=== PATIENT | male | born 1975 | race Caucasian/White ===

== ENCOUNTER 2019-06-22 17:38 | Inpatient (IN) | payer OTHER, SELFPAY ==
[2019-06-22 17:41] VITALS: BP 129/73; PULSE 55; RESP 17; TEMP 36.8; O2SAT 96
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
[2019-06-22] MEDS: Acetaminophen 325 MG TAB 650 MG PO (18:09)
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
--- NOTE | 2019-06-22 18:50 | DI.VRAD_ITS ---
PROCEDURE INFORMATION: Exam: XR Chest, 1 View Exam date and time: 06/22/2019 6:35 PM Clinical history: 44 years old, male; Other: R/O tension pneumothorax TECHNIQUE: Imaging protocol: XR of the chest Views: 1 view. COMPARISON: CR XR CLAVICLE RT 22/06/2019 18:10 FINDINGS: Lungs: No focal consolidation. Pleural space: Small right apical pneumothorax. Heart/Mediastinum: Heart and mediastinum are normal. Bones/joints: Comminuted fracture dislocation right mid clavicle. IMPRESSION: 1. Right apical pneumothorax. This finding has been communicated to Dr. Mansfield on the clavicle x-rays. 2. Comminuted fracture dislocation right mid clavicle. Dictated and Authenticated by: Kavitha Matthews MD. Ordering:BINH Santo MD
--- NOTE | 2019-06-22 19:06 | W.PM.HP.N ---
Date of service: 06/22/19 Time of Service: 19:06 Assessment and Plan Assessment and plan (1) Traumatic pneumohemothorax: Status: Acute Assessment and plan: 5% PTX. pt is asymp. will admit for O2/obs/pulm toilet and repeat CXR in am if its improving/resolved- than he can return to [place] and seek Ortho care for clavicle supoortive care if PTX is worse, than will place PTX catheter. (2) Clavicle fracture: Status: Acute Assessment and plan: ice/sling/pain control ortho F/u in [place] (3) Depression: Status: Chronic (4) Seasonal allergies: Status: Acute Review of Systems Review of Systems ROS Unobtainable: All systems reviewed & are unremarkable except as noted in HPI and below Constitutional Constitutional: Reports as per HPI, Reports system reviewed and no additional complaints, except as docu, Denies anorexia, Denies chills, Denies difficulty sleeping, Denies fatigue, Denies headache(s), Denies lethargy, Denies malaise, Denies poor appetite, Denies weakness, Denies weight gain and Denies weight loss Eyes Eyes: Reports as per HPI, Reports system reviewed and no additional complaints, except as docu and Denies change in vision ENT Ears, Nose, Mouth, and Throat: Reports system reviewed and no additional complaints, except as docu, Reports as per HPI, Denies change in voice, Denies dental pain, Denies dysphagia, Denies dizziness, Denies facial pain, Denies headache(s) and Denies odynophagia Cardiovascular Cardiovascular: Reports as per HPI, Reports system reviewed and no additional complaints, except as docu, Denies chest pain, Denies chest pain with activity, Denies syncope, Denies leg edema and Denies dyspnea Respiratory Respiratory: Reports as per HPI, Reports system reviewed and no additional complaints, except as docu, Denies chest congestion, Denies cough, Denies pain with cough and Denies dyspnea Gastrointestinal Gastrointestinal: Reports as per HPI, Reports system reviewed and no additional complaints, except as docu, Denies abdominal pain, Denies bloating, Denies change in bowel habits, Denies change in stool character, Denies constipation, Denies cramping, Denies dysphagia, Denies early satiety, Denies heartburn, Denies diarrhea, Denies nausea, Denies odynophagia and Denies vomiting Genitourinary Genitourinary: Reports system reviewed and no additional complaints, except as docu Musculoskeletal Musculoskeletal: Reports system reviewed and no additional complaints, except as docu, Reports as per HPI, Denies abnormal gait, Denies arthralgias and Denies muscle weakness Comments: echymosis/swelling over right clavicle Integumentary/Breasts Skin/Breast: Reports system reviewed and no additional complaints, except as docu, Reports as per HPI, Denies changing lesions, Denies new lesions and Denies jaundice Comments: abrasions adn echymosis on LE. L>R. motor/sensory 5/5 on LE and SHIVANI ext 4/5 on RUE Neurologic Neurologic: Reports system reviewed and no additional complaints, except as docu, Reports as per HPI, Denies abnormal speech, Denies abnormal gait, Denies dizziness, Denies syncope, Denies headache(s), Denies memory loss and Denies weakness Psychiatric Psychiatric: Reports system reviewed and no additional complaints, except as docu, Reports as per HPI, Denies change in appetite and Denies memory loss Endocrine Endocrine: Denies fatigue, Denies polydipsia and Denies polyuria Hematologic/Lymphatic Hematologic/Lymphatic: Reports system reviewed and no additional complaints, except as docu, Denies easy bleeding and Denies easy bruising Allergic/Immunologic Allergic/Immunologic: Denies system reviewed and no additional complaints, except as docu, Reports as per HPI and Denies urticaria PFSH Medical History (Updated 06/23/19 @ 21:33 by Isabel Dominique DO) Clavicle fracture (Acute) Depression (Chronic) Seasonal allergies (Acute) Traumatic pneumohemothorax (Acute) Surgical History No significant past surgical history (Acute) Social History Smoking/Tobacco Use Status: Never Alcohol Intake: current Alcohol Intake frequency: a few times a week Drug use: Never Substance use type: does not use Do you feel safe at home: Yes Do you feel safe in your relationship?: Yes Meds Home Medications and Allergies Home Medications Medication Instructions Recorded Confirmed Type citalopram 20 mg PO DAILY 06/22/19 06/22/19 History Allergies Allergy/AdvReac Type Severity Reaction Status Date / Time ibuprofen Allergy Intermediate Wheezing Unverified 06/22/19 17:40 Exam Const General: cooperative, healthy appearing, comfortable, no acute distress, well developed and well groomed Nutritional Appearance: average body habitus and well nourished Orientation: alert, awake and oriented x3 [facility] Head: normal to inspection, normocephalic and atraumatic Ears: hearing grossly normal bilaterally and external ears normal General nose exam: external nose normal Face and sinus: normal facial exam and sinuses nontender Mouth: oral mucosae normal, lip normal, tongue normal and moist mucous membranes Teeth and gingiva: dentition normal Eyes General: appearance normal, both eyes and all related structures Conjunctivae: conjunctivae normal Sclera: sclerae normal Pupils: PERRL Neck Neck: normal visual inspection and full ROM Chest Chest: normal inspection of the chest Resp Effort & Inspection: normal respiratory effort, able to speak in complete sentences, no cough, no nasal flaring, not tachypneic and no use of accessory muscles Auscultation: clear to auscultation bilaterally, no rales, no rhonchi and no wheezes Cardio Jugular venous pressure: no JVD Rate: regular rate Rhythm: regular rhythm GI Inspection: normal to inspection, no edema and non-distended Palpation: soft, no masses, nontender and No ascites Auscultation: normal bowel sounds Skin General skin exam: no rashes or lesions noted Trauma: no lacerations or abrasions Neuro General: alert, oriented x3, oriented, gait normal, moves all extremities, no focal motor deficits and CN's II-XI intact bilaterally Cognition: normal cognition Speech: speech normal Gait: normal gait Motor: muscle tone normal throughout Extrem General: normal to inspection, full ROM and no clubbing, cyanosis or edema Right upper extremity: normal capillary refill and shoulder/upper arm (echymosis and obvious deformity R clavicle ); no edema Left upper extremity: normal to inspection, full ROM, normal capillary refill and edema Right lower extremity: normal to inspection, full ROM and normal capillary refill; no cyanosis and no edema Left lower extremity: normal to inspection, full ROM and normal capillary refill; no cyanosis and no edema Psych Appearance: grossly normal and well kempt Mental Status: mental status grossly normal Speech and Movement: speech and movement normal Affect: normal affect Results Labs Result diagrams: 06/23/19 06:42 06/22/19 18:50 Last Vital Signs Temp 36.8 C 06/22/19 17:41 Pulse 55 L 06/22/19 17:41 Resp 17 06/22/19 17:41 BP 129/73 06/22/19 17:41 Pulse Ox 96 06/22/19 17:41
[2019-06-22 19:07] LABS: HCT 38.1 % (40.0-50.0); HGB 12.6 g/dL (13.5-17.5); Mean Corp. HGB Concentration 33.1 g/dL (32.0-36.0); Mean Corpuscular Hemoglobin 27.5 pg (27.0-33.0); Mean Corpuscular Volume 83.2 fL (80-95); Mean Platelet Volume 10.4 fL (8.0-11.0); Platelet Count 236 x1000/uL (130-400); RBC 4.58 m/cumm (4.50-6.00); RBC Distribution Width 12.7 % (11.8-14.1); White Blood Cell Count 13.63 k/cumm (4.4-10.8)
[2019-06-22 19:25] LABS: Anion Gap 6.7 mmol/L (3-11); BUN 20 mg/dL (7-18); CO2 26.3 mmol/L (21.0-32.0); CREATININE 0.79 mg/dL (0.70-1.30); Calcium 8.5 mg/dL (8.5-10.1); Chloride 107 mmol/L (98-107); Glucose 104 mg/dL (70-100); Sodium 140 mmol/L (136-145)
[2019-06-22 19:27] LABS: Troponin I < 0.05 ng/mL (0.00-0.06)
[2019-06-22 20:42] VITALS: BP 129/73; PULSE 55; RESP 17; TEMP 36.8; O2SAT 96
[2019-06-22 20:47] VITALS: BP 138/68; PULSE 55; RESP 14; TEMP 36.8; O2SAT 98
[2019-06-22 21:30] VITALS: PULSE 48
[2019-06-22] MEDS: Lactated Ringers 1,000 ML 75 ML IV (21:37)
[2019-06-22] MEDS: Normal Saline Flush 10 ML SYR IVP (21:39)
[2019-06-22 23:00] VITALS: PULSE 53
[2019-06-22] MEDS: Acetaminophen 500 MG TAB 1000 MG PO (23:05)
[2019-06-22 23:07] VITALS: BP 125/69; PULSE 53; RESP 16; TEMP 36.3; O2SAT 98
[2019-06-23] VITALS (13 sets, daily range): BP systolic 125–134; BP diastolic 65–76; PULSE 47–54; RESP 12–18; TEMP 36.2–37.2; O2SAT 96–99
[2019-06-23] MEDS: Acetaminophen 500 MG TAB 1000 MG PO ×4 (06:02→23:39)
[2019-06-23 07:22] LABS: Abs Immature Grans 0.02 k/cumm (0.0-0.09); Absolute Basophil Count 0.01 k/cumm (0.0-0.2); Absolute Eosinophil Count 0.44 k/cumm (0.0-0.7); Absolute Lymphocyte Count 1.33 k/cumm (1.2-3.4); Absolute Monocyte Count 0.78 k/cumm (0.11-0.7); Absolute Neutrophil Count 5.06 k/cumm (1.2-6.7); Basophils % 0.1; Eosinophils % 5.8; HCT 36.5 % (40.0-50.0); HGB 11.9 g/dL (13.5-17.5); Immature Grans % 0.3; Lymphocytes % 17.4; Mean Corp. HGB Concentration 32.6 g/dL (32.0-36.0); Mean Corpuscular Hemoglobin 27.4 pg (27.0-33.0); Mean Corpuscular Volume 84.1 fL (80-95); Mean Platelet Volume 10.4 fL (8.0-11.0); Monocytes % 10.2; Neutrophils % 66.2; Platelet Count 193 x1000/uL (130-400); RBC 4.34 m/cumm (4.50-6.00); RBC Distribution Width 12.8 % (11.8-14.1); White Blood Cell Count 7.64 k/cumm (4.4-10.8)
[2019-06-23] MEDS: Normal Saline Flush 10 ML SYR IVP (07:51)
[2019-06-23] MEDS: Sennosides/Docusate Sodium TAB 1 TAB PO (07:52)
[2019-06-23] MEDS: Citalopram 20 MG TAB PO (07:52)
--- NOTE | 2019-06-23 08:15 | DI.RAD_ITS ---
EXAM: XR CHEST 2V PA LATERAL INDICATION: right PTX. COMPARISON: XR PORTABLE CHEST AP from 06/22/2019 FINDINGS: When compared with the previous examination, again noted is a small right apical pneumothorax and a r ight clavicular fracture with no significant interval change when compared with the previous examinat ion.
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
--- NOTE | 2019-06-23 08:29 | DI.VRAD_ITS ---
PROCEDURE INFORMATION: Exam: XR Chest, 2 Views Exam date and time: 06/23/2019 12:01 AM Clinical history: 44 years old, male; Other: Right ptx TECHNIQUE: Imaging protocol: XR of the chest Views: 2 views. COMPARISON: XR PORTABLE CHEST AP 06/22/2019 6:25 PM FINDINGS: Lungs: Equivocal developing right midlung pneumonia. Pleural space: Stable right-sided apical pneumothorax. Heart/Mediastinum: Unremarkable. No cardiomegaly. Bones/joints: Right-sided clavicle fracture. IMPRESSION: 1. Stable right-sided apical pneumothorax. 2. Equivocal developing right midlung pneumonia. 3. Right-sided clavicle fracture. Dictated and Authenticated by: Pranay George MD. Ordering:STEVE Hall MD
[2019-06-23] MEDS: LORazepam 2 MG/ML VIAL 1 MG IVP (13:26)
[2019-06-23] MEDS: Lactated Ringers 1,000 ML 75 ML IV (14:11)
--- NOTE | 2019-06-23 14:29 | PGE_ITS ---
Date of Service Date of service: 06/23/19 Time of Service: 14:29 Assessment and Plan Assessment and plan (1) Clavicle fracture: Status: Acute Assessment and plan: supportive care pt will f/u w/ personal PCP in [place] adn get referral to ortho once he gets home (2) Traumatic pneumohemothorax: Status: Acute Assessment and plan: will place PTX catheter today to re-inflate lung pulm toilet pain control hopefully be able to d/c monday Subjective Subjective Interval history since last seen: Pt is doing well. no headaches. No CP or SOB. no productive cough. no dysuria. no leg pain or swelling. pt ptx did not resolve over the night and he is developing atelectaisis/pneumonia in the collapsed segments. So we do need to get his lung re-expanded. Psc: A & O x3. In NAD Cardiac: No Chest pain, SOB. BP is stable. no SOB. no murmurs. no JVD. extremities are pink and warm with good cap refill. No open sores or breakdown. NSR . No Lower ext. Edema or lymphedema., Pulmonary: No SOB. Oxygen saturation is normal. No rales/rhonchi/wheeze. no productive cough. no hemoptysis. GI: no heartburn/indigestion/nausea/vomiting. no rectal pain or discharge. no abdominal pain/burning. no hernias. no jaundice. no pain or difficulty swallowing. no thrush. : pt has been able to void spontaneously. no dysuria. no hematuria skin: no pressure sores or breakdown LE: no cyanosis or edema no clubbing. No signs of venous insufficiency, no stasis dermatitis, or lymphedema. No signs of arterial dx. No punched out ulcers, loss of normal hair pattern. Neuro: The pt is moving all four extremities independently. few minor abrasions and areas of echymosis on his LE CN 2-12 are grossly intact. As are all DTR?s no numbness or tingling in ext. no neck pain w/ active or passive ROM. pulses equal b/l upper & lower. 2/2 motor 5/5 except in R arm which is 4/5- secondary to pain from clavicle. Exam Const General: cooperative, healthy appearing, comfortable, no acute distress, well developed and well groomed Nutritional Appearance: average body habitus and well nourished Orientation: alert, awake and oriented x3 [facility] Head: normal to inspection, normocephalic and atraumatic Ears: hearing grossly normal bilaterally and external ears normal General nose exam: external nose normal Face and sinus: normal facial exam and sinuses nontender Mouth: oral mucosae normal, lip normal, tongue normal and moist mucous membranes Teeth and gingiva: dentition normal Eyes General: appearance normal, both eyes and all related structures Conjunctivae: conjunctivae normal Sclera: sclerae normal Pupils: PERRL Neck Neck: normal visual inspection and full ROM Chest Chest: normal inspection of the chest Resp Effort & Inspection: normal respiratory effort, able to speak in complete sentences, no cough, no nasal flaring, not tachypneic and no use of accessory muscles Auscultation: clear to auscultation bilaterally, no rales, no rhonchi and no wheezes Cardio Jugular venous pressure: no JVD Rate: regular rate Rhythm: regular rhythm GI Inspection: normal to inspection, no edema and non-distended Palpation: soft, no masses, nontender and No ascites Auscultation: normal bowel sounds Skin General skin exam: no rashes or lesions noted Trauma: no lacerations or abrasions Neuro General: alert, oriented x3, oriented, gait normal, moves all extremities, no focal motor deficits and CN's II-XI intact bilaterally Cognition: normal cognition Speech: speech normal Gait: normal gait Motor: muscle tone normal throughout Extrem General: normal to inspection, full ROM and no clubbing, cyanosis or edema Psych Appearance: grossly normal and well kempt Mental Status: mental status grossly normal Speech and Movement: speech and movement normal Affect: normal affect Objective Objective Clinical Data: Abnormal lab results 06/22/19 06/22/19 06/23/19 Range/Units 18:50 18:50 06:42 WBC 13.63 H (4.4-10.8) k/cumm RBC 4.34 L (4.50-6.00) m/cumm Hgb 12.6 L 11.9 L (13.5-17.5) g/dL Hct 38.1 L 36.5 L (40.0-50.0) % Absolute Monocytes 0.78 H (0.11-0.7) k/cumm BUN 20 H (7-18) mg/dL Glucose 104 H (70-100) mg/dL Vital Signs Temperature 36.2 C L 06/23/19 07:26 Temperature Source Tympanic 06/23/19 07:26 Pulse 48 L 06/23/19 07:58 Pulse Rhythm Regular 06/23/19 00:00 Respiratory Rate 18 06/23/19 07:26 Respiratory Effort Non-Labored 06/23/19 00:00 Respiratory Depth Normal 06/23/19 00:00 Respiratory Pattern Normal 06/23/19 00:00 Blood Pressure 132/75 06/23/19 07:26 Blood Pressure Position Supine 06/22/19 17:41 Pulse Oximetry 99 06/23/19 07:26 Oxygen Delivery Method Nasal Cannula 06/23/19 07:26 Oxygen Flow Rate 3 06/23/19 07:26 Pain Level 4 06/23/19 14:11 Comment 06/23/19 03:00 Intake & Output 06/22/19 06/23/19 06/23/19 23:59 11:59 23:59 Intake Total 2069 Balance 2069 Weight 78.9 kg Intake: IV 1000 / 1000 Oral 1070 / 1070 Other: Urine Color Yellow Urine Appearance Clear Urine Odor Normal Voiding Methods Toilet Laboratory Results WBC 7.64 k/cumm (4.4-10.8) D 06/23/19 06:42 RBC 4.34 m/cumm (4.50-6.00) L 06/23/19 06:42 Hgb 11.9 g/dL (13.5-17.5) L 06/23/19 06:42 Hct 36.5 % (40.0-50.0) L 06/23/19 06:42 MCV 84.1 fL (80-95) 06/23/19 06:42 MCH 27.4 pg (27.0-33.0) 06/23/19 06:42 MCHC 32.6 g/dL (32.0-36.0) 06/23/19 06:42 RDW 12.8 % (11.8-14.1) 06/23/19 06:42 Plt Count 193 x1000/uL (130-400) 06/23/19 06:42 MPV 10.4 fL (8.0-11.0) 06/23/19 06:42 Immature Gran % 0.3 06/23/19 06:42 Neutrophils % 66.2 06/23/19 06:42 Lymphocytes % 17.4 06/23/19 06:42 Monocytes % 10.2 06/23/19 06:42 Eosinophils % 5.8 06/23/19 06:42 Basophils % 0.1 06/23/19 06:42 Absolute Neutrophils 5.06 k/cumm (1.2-6.7) 06/23/19 06:42 Absolute Lymphocytes 1.33 k/cumm (1.2-3.4) 06/23/19 06:42 Absolute Monocytes 0.78 k/cumm (0.11-0.7) H 06/23/19 06:42 Absolute Eosinophils 0.44 k/cumm (0.0-0.7) 06/23/19 06:42 Absolute Basophils 0.01 k/cumm (0.0-0.2) 06/23/19 06:42 Sodium 140 mmol/L (136-145) 06/22/19 18:50 Potassium 4.0 mmol/L (3.5-5.1) 06/22/19 18:50 Chloride 107 mmol/L (98-107) 06/22/19 18:50 Carbon Dioxide 26.3 mmol/L (21.0-32.0) 06/22/19 18:50 Anion Gap 6.7 mmol/L (3-11) 06/22/19 18:50 BUN 20 mg/dL (7-18) H 06/22/19 18:50 Creatinine 0.79 mg/dL (0.70-1.30) 06/22/19 18:50 Estimated GFR/1.73 m2 >= 60.00 (mL/min/1.73m2) 06/22/19 18:50 Glucose 104 mg/dL (70-100) H 06/22/19 18:50 Calcium 8.5 mg/dL (8.5-10.1) 06/22/19 18:50 Troponin I < 0.05 ng/mL (0.00-0.06) 06/22/19 18:50
--- NOTE | 2019-06-23 14:50 | DI.RAD_ITS ---
EXAM: XR PORTABLE CHEST AP POST LINE INDICATION: s/p right chest tube. COMPARISON: XR CHEST 2V PA LATERAL from 06/23/2019 TECHNIQUE: 2D digital imaging was performed. FINDINGS: Interval placement of a small bore right-sided thoracostomy tube is demonstrated. There is significan t reduction in the size of the apical pneumothorax with only a tiny residual identified. There are n o areas of consolidation. Minimal interstitial lung scarring is unchanged. There is no pleural effus ion. IMPRESSION: Interval placement of a right-sided chest tube with reduction in a small right apical pneumothorax. T iny residual is demonstrated.
--- NOTE | 2019-06-23 15:26 | DI.VRAD_ITS ---
PROCEDURE INFORMATION: Exam: XR Chest, 1 View Exam date and time: 06/23/2019 2:56 PM Clinical history: 44 years old, male; Other: S/P right chest tube TECHNIQUE: Imaging protocol: XR of the chest Views: 1 view. COMPARISON: CR XR CHEST 2V PA LATERAL 06/23/2019 8:06 AM FINDINGS: Interval placement of a smallbore right sided thoracostomy tube. Reduction in a right apical pneumothorax with a tiny residual. No focal consolidations. Minimal interstitial lung scarring unchanged. No pleural effusion. IMPRESSION: Insertion of right-sided chest tube with reduction in small right apical pneumothorax with tiny residual. Dictated and Authenticated by: Dustin Lora MD. Ordering:STEVE Hall MD
--- NOTE | 2019-06-23 16:35 | W.PM.OP ---
Date of service: 06/23/19 Time of Service: 16:35 Operative Note Operative Note DATE OF PROCEDURE: 06/23/19 PRE-OP DIAGNOSIS: traumatic PTX POST-OP DIAGNOSIS: other PROCEDURE: insertion Right sided PTX catheter SURGEON: Isabel Dominique ANESTHESIA: local ESTIMATED BLOOD LOSS: 1 PATHOLOGY: none sent Procedure Description: dictated post procedure xray shows lung re-inflated and atelectasis resolved.
[2019-06-24 03:22] VITALS: BP 120/66; PULSE 47; RESP 18; TEMP 36.1; O2SAT 99
[2019-06-24 04:00] VITALS: PULSE 46
[2019-06-24] MEDS: Acetaminophen 500 MG TAB 1000 MG PO ×2 (06:03→11:33)
--- NOTE | 2019-06-24 07:50 | DI.RAD_ITS ---
EXAM: XR CHEST 2V PA LATERAL INDICATION: s/p ptx, line. COMPARISON: XR PORTABLE CHEST AP POST LINE from 06/23/2019 TECHNIQUE: 2D digital imaging was performed. FINDINGS: Again demonstrated is the right chest tube in place. There is a tiny residual apical pneumothorax no t significantly changed when compared with the prior examination. A tiny right pleural effusion is s een. No pulmonary infiltrate. The heart is not enlarged. The hilar structures, mediastinum and trach eal air column are intact. IMPRESSION: Probable tiny right apical pneumothorax. Chest tube in place
[2019-06-24 08:15] VITALS: BP 106/64; PULSE 53; RESP 14; TEMP 36.6; O2SAT 94
[2019-06-24 08:18] VITALS: BP 120/66; PULSE 68; O2SAT 99
[2019-06-24] MEDS: Citalopram 20 MG TAB PO (08:45)
[2019-06-24] MEDS: Sennosides/Docusate Sodium TAB 1 TAB PO (08:45)
--- NOTE | 2019-06-24 08:48 | DI.RAD_ITS ---
EXAM: XR PORTABLE CHEST AP INDICATION: F/u ptx. off suction. COMPARISON: XR CHEST 2V PA LATERAL from 06/24/2019 TECHNIQUE: 2D digital imaging was performed. Follow up portable AP chest was performed. FINDINGS: The right chest tube is unchanged in position. There is no evidence of a residual pneumothorax. No pu lmonary infiltrate or pleural effusion is seen. Heart is unchanged in size. The hilar structures, me diastinum and tracheal air column are intact. IMPRESSION: The right lung appears fully expanded, chest tube unchanged in position.
--- NOTE | 2019-06-24 09:21 | W.PM.PROGNOT ---
Date of Service Date of service: 06/24/19 Time of Service: 09:21 Assessment and Plan Assessment and plan (1) Traumatic pneumohemothorax: Status: Acute Assessment and plan: lung is up clamp tube and repeat film at noon. if still good - d/c tube and d/c home today ortho care of fx once he gets home (2) Clavicle fracture: Status: Acute Subjective Subjective Interval history since last seen: Pt is doing well. no headaches. No CP or SOB. no productive cough. no dysuria. no leg pain or swelling. pt had episode of nausea and desats when taking CXR. lung is up. I think this was just a vasal-vagal episode from pain in the clavicle/moving the arm to take the CXR. Exam Const General: cooperative, healthy appearing, comfortable, no acute distress, well developed and well groomed Nutritional Appearance: average body habitus and well nourished Orientation: alert, awake and oriented x3 [facility] Head: normal to inspection, normocephalic and atraumatic Ears: hearing grossly normal bilaterally and external ears normal General nose exam: external nose normal Face and sinus: normal facial exam and sinuses nontender Mouth: oral mucosae normal, lip normal, tongue normal and moist mucous membranes Teeth and gingiva: dentition normal Eyes General: appearance normal, both eyes and all related structures Conjunctivae: conjunctivae normal Sclera: sclerae normal Pupils: PERRL Neck Neck: normal visual inspection and full ROM Chest Chest: normal inspection of the chest Resp Effort & Inspection: normal respiratory effort, able to speak in complete sentences, no cough, no nasal flaring, not tachypneic and no use of accessory muscles Auscultation: clear to auscultation bilaterally, no rales, no rhonchi and no wheezes Cardio Jugular venous pressure: no JVD Rate: regular rate Rhythm: regular rhythm Other: line site c/d/i. GI Inspection: normal to inspection, no edema and non-distended Palpation: soft, no masses, nontender and No ascites Auscultation: normal bowel sounds Skin General skin exam: no rashes or lesions noted Trauma: no lacerations or abrasions Neuro General: alert, oriented x3, oriented, gait normal, moves all extremities, no focal motor deficits and CN's II-XI intact bilaterally Cognition: normal cognition Speech: speech normal Gait: normal gait Motor: muscle tone normal throughout Extrem General: normal to inspection, full ROM and no clubbing, cyanosis or edema Psych Appearance: grossly normal and well kempt Mental Status: mental status grossly normal Speech and Movement: speech and movement normal Affect: normal affect Objective Objective Clinical Data: Vital Signs Temperature 36.6 C 06/24/19 08:15 Temperature Source Tympanic 06/24/19 08:15 Pulse 68 06/24/19 08:18 Pulse Rhythm Regular 06/23/19 23:44 Respiratory Rate 14 06/24/19 08:15 Respiratory Effort Non-Labored 06/23/19 23:44 Respiratory Depth Normal 06/23/19 23:44 Respiratory Pattern Normal 06/23/19 23:44 Blood Pressure 120/66 06/24/19 08:18 Blood Pressure Position Supine 06/22/19 17:41 Pulse Oximetry 99 06/24/19 08:18 Oxygen Delivery Method Nasal Cannula 06/24/19 08:15 Oxygen Flow Rate 2 06/24/19 08:15 Pain Level 6 06/24/19 08:15 Comment 06/24/19 08:15 Intake & Output 06/23/19 06/23/19 06/24/19 11:59 23:59 11:59 Intake Total 2070 / 2512.5 442.5 / 2512.5 250 / 250 Balance 2070 / 2512.5 442.5 / 2512.5 250 / 250 Intake: IV 1000 / 1082.5 82.5 / 1082.5 Oral 1070 / 1430 360 / 1430 250 / 250 Other: Urine Color Yellow Yellow Urine Appearance Clear Clear Urine Odor Normal Comment Patient voiding independently Voiding Methods Toilet Toilet Laboratory Results WBC 7.64 k/cumm (4.4-10.8) D 06/23/19 06:42 RBC 4.34 m/cumm (4.50-6.00) L 06/23/19 06:42 Hgb 11.9 g/dL (13.5-17.5) L 06/23/19 06:42 Hct 36.5 % (40.0-50.0) L 06/23/19 06:42 MCV 84.1 fL (80-95) 06/23/19 06:42 MCH 27.4 pg (27.0-33.0) 06/23/19 06:42 MCHC 32.6 g/dL (32.0-36.0) 06/23/19 06:42 RDW 12.8 % (11.8-14.1) 06/23/19 06:42 Plt Count 193 x1000/uL (130-400) 06/23/19 06:42 MPV 10.4 fL (8.0-11.0) 06/23/19 06:42 Immature Gran % 0.3 06/23/19 06:42 Neutrophils % 66.2 06/23/19 06:42 Lymphocytes % 17.4 06/23/19 06:42 Monocytes % 10.2 06/23/19 06:42 Eosinophils % 5.8 06/23/19 06:42 Basophils % 0.1 06/23/19 06:42 Absolute Neutrophils 5.06 k/cumm (1.2-6.7) 06/23/19 06:42 Absolute Lymphocytes 1.33 k/cumm (1.2-3.4) 06/23/19 06:42 Absolute Monocytes 0.78 k/cumm (0.11-0.7) H 06/23/19 06:42 Absolute Eosinophils 0.44 k/cumm (0.0-0.7) 06/23/19 06:42 Absolute Basophils 0.01 k/cumm (0.0-0.2) 06/23/19 06:42 Sodium 140 mmol/L (136-145) 06/22/19 18:50 Potassium 4.0 mmol/L (3.5-5.1) 06/22/19 18:50 Chloride 107 mmol/L (98-107) 06/22/19 18:50 Carbon Dioxide 26.3 mmol/L (21.0-32.0) 06/22/19 18:50 Anion Gap 6.7 mmol/L (3-11) 06/22/19 18:50 BUN 20 mg/dL (7-18) H 06/22/19 18:50 Creatinine 0.79 mg/dL (0.70-1.30) 06/22/19 18:50 Estimated GFR/1.73 m2 >= 60.00 (mL/min/1.73m2) 06/22/19 18:50 Glucose 104 mg/dL (70-100) H 06/22/19 18:50 Calcium 8.5 mg/dL (8.5-10.1) 06/22/19 18:50 Troponin I < 0.05 ng/mL (0.00-0.06) 06/22/19 18:50
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
--- NOTE | 2019-06-24 12:55 | DI.RAD_ITS ---
EXAM: XR PORTABLE CHEST AP POST LINE INDICATION: F/u on PTX. COMPARISON: XR PORTABLE CHEST AP from 06/24/2019 TECHNIQUE: 2D digital imaging was performed. FINDINGS: The lungs remain well expanded and free of infiltrate. There has been no change in the position of t he right chest tube. There is no pleural effusion. The cardiovascular structures appear intact. IMPRESSION: No interval change when compared with the previous examination.
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
--- NOTE | 2019-06-24 15:23 | W.PM.DS.N ---
Date of service: 06/24/19 Time of Service: 15:23 DS: Diagnosis Discharge Diagnosis (1) Traumatic pneumohemothorax: Status: Acute (2) Clavicle fracture: Status: Acute Discharge Plan Disposition Patient Disposition: HOME Condition: Stable Discharge Details Chief Complaint: Trauma Clinical Impression: Right clavicle fracture, Pneumothorax Reason For Visit: BLUNT CHEST TRAUMA/CLAVICLE FX/PTX Admit Date/Time: 06/22/19 18:49 Admit Provider: Isabel Dominique Attending Provider: Isabel Dominique Primary Care Provider: Sarahi,[facility] ED Provider: Hansa Mansfield Home Meds and New Rx's Prescriptions: New oxycodone 5 mg capsule 5 mg PO Q6H PRN (Reason: pain) Qty: 7 RF: 0 Continued citalopram 20 mg Tablet 20 mg PO DAILY RF: 0 Discharge Instructions Instructions: Clavicle Fracture (DC) Additional Instructions: Keep an ice bag on the chest/clavicle, 20 minutes on and 20 minutes off. Ice keeps the swelling down and swelling causes pain. Make sure you wrap the ice pack in a towel and don't apply directly to the skin. -No driving x1 week or of you are taking pain medications. -regular diet -no straining to move bowels -pain meds are very constipating: if you do not move your bowels daily take a dose of OTC milk of magnesia -It is ok to shower. No bathe, soaking, swimming or hot tubs. cover chest dressing to shower for the first 3 days. -do not remove chest dressing for x3 days. OK to remove chest dressing on Monday. Than can leave off. - You may find that your appetite is smaller. Eat 3-6 small meals throughout the day. It is important to drink lots of water after surgery, 6-10 glasses a day. 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 -We do want you up walking, at least 5-6 times per day. This is very important to prevent pneumonia and blood clots. You can climb stairs, take them slowly. -No lifting over 5 pounds. -You may find that you are very tired- this is normal after injury. - If you are having severe chest pain, feel short of breath, week or dizzy- go to ER. F/u with PCP on Monday or Monday. Need to repeat chest xray this week and referral to ortho surgery . Stand Alone Forms: Nursing Discharge Form Activity:: see above Equipment/Supplies:: No Equipment Needed Diet:: As Tolerated Discharge Orders Discharge Orders: Discharge Order (Routine); Ordered 06/24/19 Ordered By: Isabel Dominique Discharge Data Discharge Date/Time-TO BE ENTERED AT DEPARTURE: 06/24/19 17:30 DS: Summary Status at Discharge Functional status at discharge: independent ambulation Overall status at discharge: patient is back to baseline Mental Status: mental status grossly normal Speech and Movement: speech and movement normal Mood: congruent mood Affect: normal affect Exam Narrative Exam Narrative: see progress note from today Chest Other: chest dressing is c/d/i chest xray shows resolution of PTX. Psych Mental Status: mental status grossly normal Speech and Movement: speech and movement normal Mood: congruent mood Affect: normal affect DS: Data Vitals/I&O Vitals and I&O: Vital Signs Temperature 36.6 C 06/24/19 08:15 Temperature Source Tympanic 06/24/19 08:15 Pulse 68 06/24/19 08:18 Pulse Rhythm Regular 06/24/19 10:37 Respiratory Rate 14 06/24/19 08:15 Respiratory Effort Non-Labored 06/24/19 10:37 Respiratory Depth Normal 06/24/19 10:37 Respiratory Pattern Normal 06/24/19 10:37 Blood Pressure 120/66 06/24/19 08:18 Blood Pressure Position Supine 06/22/19 17:41 Pulse Oximetry 99 06/24/19 08:18 Oxygen Delivery Method Nasal Cannula 06/24/19 08:15 Oxygen Flow Rate 2 06/24/19 08:15 Pain Level 5 06/24/19 11:33 Comment 06/24/19 08:15 Intake & Output 06/23/19 06/24/19 06/24/19 23:59 11:59 23:59 Intake Total 442.5 / 2512.5 500 / 500 Balance 442.5 / 2512.5 500 / 500 Intake: IV 82.5 / 1082.5 Oral 360 / 1430 500 / 500 Other: Urine Color Yellow Urine Appearance Clear Clear Comment Patient voiding independently Voiding Methods Toilet Toilet [facility] Medical History Clavicle fracture (Acute) Depression (Chronic) Seasonal allergies (Acute) Traumatic pneumohemothorax (Acute) Surgical History No significant past surgical history (Acute) Social History Smoking/Tobacco Use Status: Never Alcohol Intake: current Alcohol Intake frequency: a few times a week Drug use: Never Substance use type: does not use Do you feel safe at home: Yes Do you feel safe in your relationship?: Yes
--- NOTE | 2019-06-24 16:35 | DI.RAD_ITS ---
EXAM: XR PORTABLE CHEST AP INDICATION: s/p line removal. COMPARISON: XR PORTABLE CHEST AP POST LINE from 06/24/2019 TECHNIQUE: 2D digital imaging was performed. FINDINGS: The right lung remains fully expanded status post removal of the chest tube. There is no pleural eff usion. The left lung is clear. The heart is not enlarged.
--- NOTE | 2019-06-24 16:41 | DI.VRAD_ITS ---
PROCEDURE INFORMATION: Exam: XR Chest, 1 View Exam date and time: 06/24/2019 4:18 PM Clinical history: 44 years old, male; Other: S/P line removal TECHNIQUE: Imaging protocol: XR of the chest Views: 1 view. COMPARISON: CR XR PORTABLE CHEST AP POST LINE 06/24/2019 12:59 PM FINDINGS: Lungs: Unremarkable. No consolidation. Pleural space: Unremarkable. No pleural effusion. No pneumothorax. Heart/Mediastinum: Unremarkable. No cardiomegaly. Bones/joints: Unremarkable. IMPRESSION: No acute findings. Dictated and Authenticated by: Pratik Mckinney MD. Ordering:STEVE Hall MD
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
== END 2019-06-24 17:30 | disposition home or self-care (01) | DRG 200 ==
LOC: ER 19:33 → MS 06-24 02:17
PROVIDERS: Admitting Provider Surgery; Emergency Provider Physician Assistant; Visit Provider Surgery
DX: S27.2XXA Traumatic hemopneumothorax, initial encounter (principal); J98.11 Atelectasis; S42.021A Displaced fracture of shaft of right clavicle, initial encounter for closed fracture; V19.9XXA Pedal cyclist (driver) (passenger) injured in unspecified traffic accident, initial encounter; Y93.55 Activity, bike riding; F32.9 Major depressive disorder, single episode, unspecified
CPT/HCPCS: 36415; 71045; 80048; 85027; 99222; 99232; 99238; 99285; 71046; 73000; 84484; 85025; 99284; J2060; L3670